=== PATIENT | female | born 1940 | race Caucasian/White ===

== ENCOUNTER 2017-12-19 17:33 | Inpatient (IN) | payer MEDICARE ==
[~2017-12-19] VITALS: Ht 157.5 cm; Wt 62.4 kg
[~2017-12-19 17:33] MED LIST: ASPI-1264 PO; ATOR20TA66 PO; CLOP75TA35 PO; HYDR25TA4 PO; LISI10TA4 PO; MULT-1074 PO
[2017-12-19 19:34] LABS: BASOPHILS % (AUTO) 0 % (0-1); EOSINOPHILS # (AUTO) 0.1 X10'3 (0-0.9); EOSINOPHILS % (AUTO) 3.2 % (0-6); LYMPHOCYTES % (AUTO) 28.5 % (21-51); MEAN CORPUSCULAR HEMOGLOBIN 22.6 PG (27.0-31.0); MEAN CORPUSCULAR HGB CONC 31.2 % (33.0-36.5); MEAN CORPUSCULAR VOLUME 72.3 FL (78-98); MEAN PLATELET VOLUME 6.5 FL (7.4-10.4); MONOCYTES # (AUTO) 0.4 X10'3 (0-0.9); NEUTROPHILS % (AUTO) 56.3 % (42-75); PLATELET COUNT 456 X10'3 (140-440); RED BLOOD COUNT 2.57 X10'6 (4.20-5.60); RED CELL DISTRIBUTION WIDTH 17.6 % (11.5-14.5); WHITE BLOOD COUNT 3.6 X10'3 (4.5-11.0)
[2017-12-19 19:46] LABS: HEMOGLOBIN 5.8 g/dl (12.0-16.0)
[2017-12-19 19:47] LABS: % IRON SATURATION 2 % (11-46); HEMATOCRIT 18.6 % (35.0-45.0); IRON 7 UG/DL (49-151); TOTAL IRON BINDING CAPACITY 444 UG/DL (259-388)
[2017-12-19 19:50] LABS: ALANINE AMINOTRANSFERASE 11 U/L (12-78); ALBUMIN 3.8 G/DL (3.4-5.0); ALBUMIN/GLOBULIN RATIO 1.1 (1.1-1.5); ALKALINE PHOSPHATASE 66 IU/L (46-116); ANION GAP 9 (8-16); ASPARTATE AMINO TRANSFERASE 8 U/L (10-37); BILIRUBIN,TOTAL 0.1 MG/DL (0.1-1.0); BLOOD UREA NITROGEN 20 MG/DL (7-18); BUN/CREATININE RATIO 17.9 (6.6-38.0); CHLORIDE 107 MMOL/L (99-107); CREATININE 1.12 MG/DL (0.40-0.90); GLUCOSE 101 MG/DL (70-104); POTASSIUM 4.4 MMOL/L (3.5-5.1); SODIUM 143 MMOL/L (135-145); TOTAL CARBON DIOXIDE 26.6 MMOL/L (24-32); TOTAL PROTEIN 7.3 G/DL (6.4-8.2); eGFR 47 ML/MIN
[2017-12-19 20:02] LABS: TOTAL CELLS COUNTED 100
[2017-12-19 20:04] LABS: ANISOCYTOSIS 2+; PLATELET ESTIMATE NORMAL; POLYCHROMASIA 1+
[2017-12-19 20:05] LABS: ELLIPTOCYTES 1+; HYPOCHROMASIA 2+; SCHISTOCYTES 1+; TARGET CELLS 1+
[2017-12-19] MEDS ORDERED: acetaminophen 325mg tablet PO PRN (20:35)
[2017-12-19] MEDS ORDERED: mag hydrox/Alum hydrox/simeth 30ml oral suspension PO PRN (20:35)
[2017-12-19] MEDS ORDERED: magnesium hydroxide 30ml (MOM) UD suspension PO PRN (20:35)
[2017-12-19] MEDS ORDERED: normal saline 1000ml 1,000 ML IV SCH (20:35)
[2017-12-19] MEDS ORDERED: ondansetron/PF 4mg/2ml inj IV PRN (20:35)
[2017-12-19 21:13] VITALS: BP 154/73
[2017-12-19 21:28] VITALS: BP 163/78
[2017-12-19 21:43] VITALS: BP 167/67
[2017-12-19 21:58] VITALS: BP 175/60
[2017-12-19 22:16] LABS: OCCULT BLOOD STOOL NEGATIVE (Neg)
[2017-12-19 22:30] VITALS: BP 173/52
[2017-12-19 23:58] VITALS: BP 168/73
[2017-12-20 00:18] VITALS: BP 143/47
[2017-12-20 00:41] VITALS: BP 150/55
[2017-12-20 01:45] VITALS: BP 138/47
[2017-12-20 02:45] VITALS: BP 148/53
[2017-12-20 06:08] LABS: BASOPHILS % (AUTO) 0.5 % (0-1); EOSINOPHILS # (AUTO) 0.2 X10'3 (0-0.9); EOSINOPHILS % (AUTO) 4.3 % (0-6); HEMATOCRIT 28.4 % (35.0-45.0); HEMOGLOBIN 9.3 g/dl (12.0-16.0); LYMPHOCYTES # (AUTO) 1.2 X10'3 (1.1-4.8); LYMPHOCYTES % (AUTO) 27.6 % (21-51); MEAN CORPUSCULAR HEMOGLOBIN 25.3 PG (27.0-31.0); MEAN CORPUSCULAR HGB CONC 32.7 % (33.0-36.5); MEAN CORPUSCULAR VOLUME 77.2 FL (78-98); MEAN PLATELET VOLUME 7.1 FL (7.4-10.4); MONOCYTES # (AUTO) 0.7 X10'3 (0-0.9); MONOCYTES % (AUTO) 15.3 % (2-12); NEUTROPHILS # (AUTO) 2.2 X10'3 (1.8-7.7); NEUTROPHILS % (AUTO) 52.3 % (42-75); PLATELET COUNT 347 X10'3 (140-440); RED BLOOD COUNT 3.68 X10'6 (4.20-5.60); RED CELL DISTRIBUTION WIDTH 18.4 % (11.5-14.5); WHITE BLOOD COUNT 4.3 X10'3 (4.5-11.0)
[2017-12-20 06:24] LABS: ALANINE AMINOTRANSFERASE 11 U/L (12-78); ALBUMIN 3.4 G/DL (3.4-5.0); ALKALINE PHOSPHATASE 61 IU/L (46-116); ANION GAP 11 (8-16); ASPARTATE AMINO TRANSFERASE 7 U/L (10-37); BILIRUBIN,TOTAL 0.7 MG/DL (0.1-1.0); BLOOD UREA NITROGEN 17 MG/DL (7-18); BUN/CREATININE RATIO 17.5 (6.6-38.0); CALCIUM 8.4 MG/DL (8.5-10.1); CHLORIDE 108 MMOL/L (99-107); CREATININE 0.97 MG/DL (0.40-0.90); GLUCOSE 90 MG/DL (70-104); POTASSIUM 4.6 MMOL/L (3.5-5.1); SODIUM 144 MMOL/L (135-145); TOTAL CARBON DIOXIDE 25.2 MMOL/L (24-32); TOTAL PROTEIN 6.7 G/DL (6.4-8.2); eGFR 56 ML/MIN
[2017-12-20 06:34] LABS: ANISOCYTOSIS 2+; HYPOCHROMASIA 1+; PLATELET ESTIMATE NORMAL
[2017-12-20 06:53] VITALS: BP 144/59
[2017-12-20] MEDS ORDERED: atorvastatin 20mg tablet PO SCH (08:00)
[2017-12-20] MEDS ORDERED: sodium ferric gluc complex inj 125 MG in normal saline 100ml IV soln 100 ML IV SCH (10:00)
[2017-12-20 12:02] LABS: BASOPHILS % (AUTO) 0.1 % (0-1); EOSINOPHILS # (AUTO) 0.1 X10'3 (0-0.9); EOSINOPHILS % (AUTO) 2.5 % (0-6); HEMOGLOBIN 9.1 g/dl (12.0-16.0); LYMPHOCYTES # (AUTO) 0.9 X10'3 (1.1-4.8); LYMPHOCYTES % (AUTO) 21.2 % (21-51); MEAN CORPUSCULAR HGB CONC 32.4 % (33.0-36.5); MEAN CORPUSCULAR VOLUME 77.2 FL (78-98); MEAN PLATELET VOLUME 7.1 FL (7.4-10.4); MONOCYTES # (AUTO) 0.5 X10'3 (0-0.9); MONOCYTES % (AUTO) 12.5 % (2-12); NEUTROPHILS # (AUTO) 2.7 X10'3 (1.8-7.7); NEUTROPHILS % (AUTO) 63.7 % (42-75); PLATELET COUNT 340 X10'3 (140-440); RED BLOOD COUNT 3.63 X10'6 (4.20-5.60); RED CELL DISTRIBUTION WIDTH 18.4 % (11.5-14.5); WHITE BLOOD COUNT 4.2 X10'3 (4.5-11.0)
[2017-12-20] MEDS ORDERED: FERR324T12 PO (12:16)
== END 2017-12-20 15:50 | disposition home or self-care (01) | DRG 812 ==
LOC: ER 17:34 → ED HOLD 20:35 → EDBEDREQ 21:18 → ORTHO 4S 22:15 → CMPBEDREQ 22:21
PROVIDERS: ADMIT Internal Medicine; ATTEND Internal Medicine
PROC: 30233N1 Transfusion of Nonautologous Red Blood Cells into Peripheral Vein, Percutaneous Approach (ICD-10-PCS; principal; 2017-12-19)
DX: D50.9 Iron deficiency anemia, unspecified (principal); I12.9 Hypertensive chronic kidney disease with stage 1 through stage 4 chronic kidney disease, or unspecified chronic kidney disease; N18.9 Chronic kidney disease, unspecified; Z82.49 Family history of ischemic heart disease and other diseases of the circulatory system; Z86.73 Personal history of transient ischemic attack (TIA), and cerebral infarction without residual deficits; Z88.2 Allergy status to sulfonamides
CPT/HCPCS: 36415; 80053; 82272; 83540; 83550; 85025; 86885; 86900; 86901; 86920; 87070; J2916; J7030; P9016

== ENCOUNTER → 2019-10-03 | Emergency (ER) | payer MEDICARE, OTHER ==
[~2019-10-03] VITALS: Ht 157.5 cm; Wt 63.7 kg
[~2019-10-03] MED LIST changes: +FERR324T12 PO
[2019-10-03 15:44] VITALS: BP 161/75
== END | disposition home or self-care (01) ==
LOC: ER 14:13
DX: S06.0X0A Concussion without loss of consciousness, initial encounter (principal); S40.011A Contusion of right shoulder, initial encounter; I10 Essential (primary) hypertension; Z86.2 Personal history of diseases of the blood and blood-forming organs and certain disorders involving the immune mechanism; Z86.73 Personal history of transient ischemic attack (TIA), and cerebral infarction without residual deficits; Z88.2 Allergy status to sulfonamides; Z79.82 Long term (current) use of aspirin; Z79.899 Other long term (current) drug therapy; V89.2XXA Person injured in unspecified motor-vehicle accident, traffic, initial encounter; Y93.89 Activity, other specified; Y92.488 Other paved roadways as the place of occurrence of the external cause; Y99.8 Other external cause status
CPT/HCPCS: 70450; 72125; 73030; 99285

== ENCOUNTER 2020-10-18 11:32 | Emergency (ER) | payer MEDICARE ==
[~2020-10-18] VITALS: Ht 157.5 cm; Wt 61.0 kg
[~2020-10-18 11:32] MED LIST changes: +CLOP75TA34 PO; -CLOP75TA35 PO; +LISI10TA27 PO; -LISI10TA4 PO
[2020-10-18] MEDS ORDERED: ibuprofen tablet 400 MG TABLET PO ONE (12:05)
[2020-10-18 12:26] LABS: HEMOGLOBIN 13.3 g/dl (12.0-16.0); MEAN CORPUSCULAR HEMOGLOBIN 29.5 PG (27.0-31.0); MEAN CORPUSCULAR HGB CONC 32.4 g/dL (33.0-36.5)
[2020-10-18 12:28] LABS: BASOPHILS % (AUTO) 0.6 % (0-1); EOSINOPHILS # (AUTO) 0.1 X10'3 (0-0.9); EOSINOPHILS % (AUTO) 3.2 % (0-6); HEMATOCRIT 40.9 % (35.0-45.0); LYMPHOCYTES # (AUTO) 0.8 X10'3 (1.1-4.8); LYMPHOCYTES % (AUTO) 17.6 % (21-51); MEAN CORPUSCULAR VOLUME 91.3 FL (78-98); MEAN PLATELET VOLUME 7.2 FL (7.4-10.4); MONOCYTES # (AUTO) 0.5 X10'3 (0-0.9); MONOCYTES % (AUTO) 11.4 % (2-12); NEUTROPHILS # (AUTO) 3.1 X10'3 (1.8-7.7); NEUTROPHILS % (AUTO) 67.2 % (42-75); PLATELET COUNT 282 X10'3 (140-440); RED BLOOD COUNT 4.49 X10'6 (4.20-5.60); RED CELL DISTRIBUTION WIDTH 15.4 % (11.5-14.5); WHITE BLOOD COUNT 4.7 X10'3 (4.5-11.0)
[2020-10-18 12:37] LABS: D-DIMER 1.26 MG/L FEU (0-0.50)
[2020-10-18 12:40] LABS: ALANINE AMINOTRANSFERASE 13 U/L (12-78); ALBUMIN 3.5 G/DL (3.4-5.0); ALBUMIN/GLOBULIN RATIO 0.9 (1.1-1.5); ALKALINE PHOSPHATASE 68 IU/L (46-116); ANION GAP 11 (8-16); ASPARTATE AMINO TRANSFERASE 11 U/L (10-37); BILIRUBIN,TOTAL 0.3 MG/DL (0.1-1.0); BLOOD UREA NITROGEN 16 MG/DL (7-18); BUN/CREATININE RATIO 17.6 (6.6-38.0); CALCIUM 9.3 MG/DL (8.5-10.1); CHLORIDE 108 MMOL/L (99-107); CREATININE 0.91 MG/DL (0.40-0.90); GLUCOSE 137 MG/DL (70-104); POTASSIUM 3.8 MMOL/L (3.5-5.1); SODIUM 145 MMOL/L (135-145); TOTAL CARBON DIOXIDE 26.5 MMOL/L (24-32); TOTAL PROTEIN 7.4 G/DL (6.4-8.2); eGFR 60 ML/MIN
[2020-10-18] MEDS ORDERED: iohexol 350MG/ML 100ml bottle IV ONE (13:12)
--- NOTE | 2020-10-18 13:25 | NUR ---
PT IN CT
--- NOTE | 2020-10-18 13:50 | NUR ---
PT RESTING ON ANDREW, AT BEDSIDE. AWAITING CT RESULTS
[2020-10-18] MEDS ORDERED: HYDR-3964 PO (14:20)
[2020-10-18] MEDS ORDERED: ONDA4TAB6 PO (14:20)
[2020-10-18 14:24] VITALS: BP 125/70
== END 2020-10-18 14:42 | disposition home or self-care (01) ==
LOC: ER 11:32
DX: S22.31XA Fracture of one rib, right side, initial encounter for closed fracture (principal); K44.9 Diaphragmatic hernia without obstruction or gangrene; I10 Essential (primary) hypertension; Z86.2 Personal history of diseases of the blood and blood-forming organs and certain disorders involving the immune mechanism; Z86.73 Personal history of transient ischemic attack (TIA), and cerebral infarction without residual deficits; Z88.2 Allergy status to sulfonamides; Z79.82 Long term (current) use of aspirin; Z79.899 Other long term (current) drug therapy; X58.XXXA Exposure to other specified factors, initial encounter; Y93.89 Activity, other specified; Y92.89 Other specified places as the place of occurrence of the external cause; Y99.8 Other external cause status
CPT/HCPCS: 36415; 71045; 71275; 80053; 83880; 84484; 85025; 85379; 93005; 99285; Q9967

== ENCOUNTER 2021-01-04 05:12 | Emergency (ER) | payer MEDICARE ==
[~2021-01-04] VITALS: Ht 157.5 cm; Wt 63.6 kg
[~2021-01-04 05:12] MED LIST changes: +ONDA4TAB6 PO
[2021-01-04] MEDS ORDERED: ondansetron/PF 4mg/2ml inj IV ONE (05:40)
[2021-01-04 05:53] LABS: BASOPHILS % (AUTO) 0.5 % (0-1); EOSINOPHILS % (AUTO) 0.1 % (0-6); HEMATOCRIT 43.9 % (35.0-45.0); HEMOGLOBIN 14.6 g/dl (12.0-16.0); LYMPHOCYTES % (AUTO) 11.7 % (21-51); MEAN CORPUSCULAR HEMOGLOBIN 30.7 PG (27.0-31.0); MEAN CORPUSCULAR HGB CONC 33.2 g/dL (33.0-36.5); MEAN CORPUSCULAR VOLUME 92.4 FL (78-98); MEAN PLATELET VOLUME 7.2 FL (7.4-10.4); MONOCYTES # (AUTO) 0.4 X10'3 (0-0.9); MONOCYTES % (AUTO) 4.5 % (2-12); NEUTROPHILS # (AUTO) 6.8 X10'3 (1.8-7.7); NEUTROPHILS % (AUTO) 83.2 % (42-75); PLATELET COUNT 280 X10'3 (140-440); RED BLOOD COUNT 4.75 X10'6 (4.20-5.60); RED CELL DISTRIBUTION WIDTH 14.1 % (11.5-14.5); WHITE BLOOD COUNT 8.2 X10'3 (4.5-11.0)
--- NOTE | 2021-01-04 06:00 | NUR ---
PT OUT TO CT
[2021-01-04 06:08] LABS: ALANINE AMINOTRANSFERASE 15 U/L (12-78); ALBUMIN 3.9 G/DL (3.4-5.0); ALKALINE PHOSPHATASE 72 IU/L (46-116); ANION GAP 15 (8-16); ASPARTATE AMINO TRANSFERASE 8 U/L (10-37); BILIRUBIN,TOTAL 0.4 MG/DL (0.1-1.0); BLOOD UREA NITROGEN 16 MG/DL (7-18); CALCIUM 8.9 MG/DL (8.5-10.1); CHLORIDE 104 MMOL/L (99-107); CREATININE 1.14 MG/DL (0.40-0.90); GLUCOSE 215 MG/DL (70-104); POTASSIUM 3.6 MMOL/L (3.5-5.1); SODIUM 141 MMOL/L (135-145); TOTAL CARBON DIOXIDE 21.9 MMOL/L (24-32); TOTAL PROTEIN 7.8 G/DL (6.4-8.2); eGFR 46 ML/MIN
[2021-01-04] MEDS ORDERED: normal saline 1000ml 1,000 ML IVB ONE (06:50)
--- NOTE | 2021-01-04 07:39 | NUR ---
Dr Collins in to assess patient at this time, states patient needs PO challenge and gait test prior to DC.
[2021-01-04] MEDS ORDERED: meclizine 12.5mg tablet PO ONE (08:25)
[2021-01-04] MEDS ORDERED: diazepam inj 5 MG/ML inj. IV ONE (08:25)
--- NOTE | 2021-01-04 08:30 | NUR ---
PATIENT GAIT TESTED, DR FREED AWARE PATIENT MILDLY DIZZY.
--- NOTE | 2021-01-04 08:40 | NUR ---
PATIENT TOLERATED WATER AND CRACKERS WELL, DR FREED AWARE.
--- NOTE | 2021-01-04 09:13 | NUR ---
PATIENT AROUSABLE VIA VERBAL STIMULI, SAT UP AT EDGE OF BED, DENIES DIZZINESS, STATES SHE FEELS READY TO GO HOME, DR FREED MADE AWARE.
[2021-01-04] MEDS ORDERED: MECL-159 PO (09:15)
[2021-01-04 09:28] VITALS: BP 152/69
== END 2021-01-04 09:29 | disposition home or self-care (01) ==
LOC: ER 05:13
DX: R42 Dizziness and giddiness (principal); R11.10 Vomiting, unspecified; R94.31 Abnormal electrocardiogram [ECG] [EKG]; I11.9 Hypertensive heart disease without heart failure; D64.9 Anemia, unspecified; Z88.2 Allergy status to sulfonamides; Z88.8 Allergy status to other drugs, medicaments and biological substances; Z79.899 Other long term (current) drug therapy
CPT/HCPCS: 36415; 70450; 71045; 80053; 83880; 84484; 85025; 93005; 96361; 96374; 96375; 99285; J2405; J3360; J7030; J8597

== ENCOUNTER 2021-03-08 14:40 | Inpatient (IN) | payer MEDICARE ==
[~2021-03-08] VITALS: Ht 157.5 cm; Wt 63.9 kg
[~2021-03-08 14:40] MED LIST changes: +MECL-159 PO
[2021-03-08 15:08] LABS: BASOPHILS % (AUTO) 0.7 % (0-1); EOSINOPHILS # (AUTO) 0.1 X10'3 (0-0.9); EOSINOPHILS % (AUTO) 1.7 % (0-6); HEMOGLOBIN 13.9 g/dl (12.0-16.0); LYMPHOCYTES # (AUTO) 1.3 X10'3 (1.1-4.8); LYMPHOCYTES % (AUTO) 28.8 % (21-51); MEAN CORPUSCULAR HEMOGLOBIN 30.6 PG (27.0-31.0); MEAN CORPUSCULAR HGB CONC 33.2 g/dL (33.0-36.5); MEAN CORPUSCULAR VOLUME 92.1 FL (78-98); MONOCYTES # (AUTO) 0.5 X10'3 (0-0.9); MONOCYTES % (AUTO) 11.1 % (2-12); NEUTROPHILS # (AUTO) 2.5 X10'3 (1.8-7.7); NEUTROPHILS % (AUTO) 57.7 % (42-75); PLATELET COUNT 302 X10'3 (140-440); RED BLOOD COUNT 4.56 X10'6 (4.20-5.60); RED CELL DISTRIBUTION WIDTH 14.2 % (11.5-14.5); WHITE BLOOD COUNT 4.4 X10'3 (4.5-11.0)
[2021-03-08 15:25] LABS: ALANINE AMINOTRANSFERASE 18 U/L (12-78); ALBUMIN 3.9 G/DL (3.4-5.0); ALKALINE PHOSPHATASE 67 IU/L (46-116); ANION GAP 13 (8-16); ASPARTATE AMINO TRANSFERASE 12 U/L (10-37); BILIRUBIN,TOTAL 0.3 MG/DL (0.1-1.0); BLOOD UREA NITROGEN 18 MG/DL (7-18); BUN/CREATININE RATIO 14.9 (6.6-38.0); CALCIUM 9.2 MG/DL (8.5-10.1); CHLORIDE 107 MMOL/L (99-107); CREATININE 1.21 MG/DL (0.40-0.90); GLUCOSE 131 MG/DL (70-104); POTASSIUM 3.9 MMOL/L (3.5-5.1); SODIUM 145 MMOL/L (135-145); TOTAL CARBON DIOXIDE 24.8 MMOL/L (24-32); TOTAL PROTEIN 7.9 G/DL (6.4-8.2); eGFR 43 ML/MIN
[2021-03-08 15:28] LABS: TROPONIN I < 0.04 NG/ML (0.0-0.05)
[2021-03-08 15:51] LABS: PARTIAL THROMBOPLASTIN TIME 25 SECONDS (22-32)
[2021-03-08] MEDS ORDERED: labetalol 20mg/4ml (5mg/ml) syringe IV ONE (20:20)
[2021-03-08] MEDS ORDERED: temazepam 15mg capsule PO PRN (21:00)
--- NOTE | 2021-03-08 21:10 | NUR ---
Tele neuro completed
[2021-03-08] MEDS ORDERED: acetaminophen 325mg tablet PO PRN ×2 (22:50)
[2021-03-08] MEDS ORDERED: magnesium 4gm in 100ml NS 100 ML IV PRN (22:50)
[2021-03-08] MEDS ORDERED: magnesium 2GM in 50ml NS 50 ML IV PRN (22:50)
[2021-03-08] MEDS ORDERED: mag hydrox/Alum hydrox/simeth 30ml oral suspension PO PRN (22:50)
[2021-03-08] MEDS ORDERED: ondansetron/PF 4mg/2ml inj IV PRN (22:50)
[2021-03-08] MEDS ORDERED: potassium Cl 20 mEq SR tablet PO PRN ×2 (22:50)
[2021-03-08] MEDS ORDERED: potassium Cl 40MEQ/1/2NS 520ml 520 ML IV PRN ×2 (22:50)
[2021-03-08] MEDS ORDERED: magnesium hydroxide 30ml (MOM) UD suspension PO PRN (22:50)
[2021-03-08] MEDS ORDERED: magnesium Cl slow-release 64mg tablet PO PRN (22:50)
[2021-03-08] MEDS: normal saline 1000ml 1,000 ML IV SCH (23:41)
[2021-03-09 01:20] VITALS: BP 189/87
[2021-03-09 05:20] VITALS: BP 151/68
[2021-03-09 05:58] LABS: BASOPHILS % (AUTO) 0.7 % (0-1); EOSINOPHILS # (AUTO) 0.1 X10'3 (0-0.9); EOSINOPHILS % (AUTO) 2.7 % (0-6); HEMATOCRIT 38.8 % (35.0-45.0); LYMPHOCYTES # (AUTO) 1.1 X10'3 (1.1-4.8); LYMPHOCYTES % (AUTO) 27.3 % (21-51); MEAN CORPUSCULAR HEMOGLOBIN 30.5 PG (27.0-31.0); MEAN CORPUSCULAR HGB CONC 33.5 g/dL (33.0-36.5); MEAN PLATELET VOLUME 7.3 FL (7.4-10.4); MONOCYTES # (AUTO) 0.6 X10'3 (0-0.9); MONOCYTES % (AUTO) 14.1 % (2-12); NEUTROPHILS # (AUTO) 2.2 X10'3 (1.8-7.7); NEUTROPHILS % (AUTO) 55.2 % (42-75); PLATELET COUNT 266 X10'3 (140-440); RED BLOOD COUNT 4.26 X10'6 (4.20-5.60); RED CELL DISTRIBUTION WIDTH 14.2 % (11.5-14.5); WHITE BLOOD COUNT 4.1 X10'3 (4.5-11.0)
[2021-03-09 06:04] LABS: ALANINE AMINOTRANSFERASE 14 U/L (12-78); ALBUMIN 3.6 G/DL (3.4-5.0); ALBUMIN/GLOBULIN RATIO 1.1 (1.1-1.5); ALKALINE PHOSPHATASE 62 IU/L (46-116); ANION GAP 8 (8-16); ASPARTATE AMINO TRANSFERASE 8 U/L (10-37); BILIRUBIN,TOTAL 0.4 MG/DL (0.1-1.0); BLOOD UREA NITROGEN 17 MG/DL (7-18); CALCIUM 8.9 MG/DL (8.5-10.1); CHLORIDE 110 MMOL/L (99-107); CHOL/HDL RATIO 4.4 (0.00-4.99); CHOLESTEROL 180 MG/DL (0-200); CREATININE 1.06 MG/DL (0.40-0.90); GLUCOSE 100 MG/DL (70-104); HDL CHOLESTEROL 41 MG/DL (35-60); LDL CHOLESTEROL 111 MG/DL (50-100); MAGNESIUM 1.9 MG/DL (1.5-2.4); POTASSIUM 3.9 MMOL/L (3.5-5.1); SODIUM 146 MMOL/L (135-145); TOTAL CARBON DIOXIDE 28.2 MMOL/L (24-32); TOTAL PROTEIN 6.9 G/DL (6.4-8.2); TRIGLYCERIDES 119 MG/DL (20-135); eGFR 50 ML/MIN
--- NOTE | 2021-03-09 06:56 | NUR ---
Patient in room ORTHO 4024B. I have received report from ROXANNA LEAL and had the opportunity to ask questions and assume patient care.
[2021-03-09] MEDS: clopidogrel 75mg tablet PO SCH (07:37)
[2021-03-09] MEDS: aspirin 81mg, enteric-coated 1 TAB TABLET.DR PO SCH (07:39)
[2021-03-09] MEDS: heparin, porcine 5000 units/ml vial SQ SCH ×2 (07:40→20:06)
[2021-03-09] MEDS ORDERED: atorvastatin 20mg tablet PO SCH (08:00)
[2021-03-09] MEDS: K and/or MAG REPLACEMENT MC SCH ×2 (08:00→20:00)
[2021-03-09 10:00] VITALS: BP 146/84
[2021-03-09] MEDS ORDERED: FLUO-86 PO (11:57)
[2021-03-09] MEDS: normal saline 1000ml 1,000 ML IV SCH (13:08)
[2021-03-09 14:00] VITALS: BP 134/60
[2021-03-09] MEDS ORDERED: atorvastatin 20mg tablet PO ONE (16:20)
[2021-03-09 18:00] VITALS: BP 158/74
--- NOTE | 2021-03-09 18:30 | NUR ---
Problems reprioritized. Patient report given, questions answered & plan of care reviewed with ROXANNA BARBER.
[2021-03-09 22:00] VITALS: BP 147/73
[2021-03-10 02:25] VITALS: BP 175/80
[2021-03-10] MEDS: normal saline 1000ml 1,000 ML IV SCH ×2 (03:26→17:44)
[2021-03-10 06:00] VITALS: BP 149/78
[2021-03-10 06:11] LABS: BASOPHILS % (AUTO) 1.3 % (0-1); EOSINOPHILS # (AUTO) 0.1 X10'3 (0-0.9); EOSINOPHILS % (AUTO) 3.5 % (0-6); HEMATOCRIT 42.6 % (35.0-45.0); HEMOGLOBIN 14.2 g/dl (12.0-16.0); LYMPHOCYTES # (AUTO) 1.1 X10'3 (1.1-4.8); LYMPHOCYTES % (AUTO) 31.7 % (21-51); MEAN CORPUSCULAR HEMOGLOBIN 30.8 PG (27.0-31.0); MEAN CORPUSCULAR HGB CONC 33.3 g/dL (33.0-36.5); MEAN CORPUSCULAR VOLUME 92.5 FL (78-98); MEAN PLATELET VOLUME 7.4 FL (7.4-10.4); MONOCYTES # (AUTO) 0.6 X10'3 (0-0.9); MONOCYTES % (AUTO) 16.4 % (2-12); NEUTROPHILS # (AUTO) 1.6 X10'3 (1.8-7.7); NEUTROPHILS % (AUTO) 47.1 % (42-75); PLATELET COUNT 289 X10'3 (140-440); RED BLOOD COUNT 4.61 X10'6 (4.20-5.60); RED CELL DISTRIBUTION WIDTH 14.2 % (11.5-14.5); WHITE BLOOD COUNT 3.4 X10'3 (4.5-11.0)
[2021-03-10 06:18] LABS: ALANINE AMINOTRANSFERASE 17 U/L (12-78); ALBUMIN 3.9 G/DL (3.4-5.0); ALBUMIN/GLOBULIN RATIO 1.1 (1.1-1.5); ALKALINE PHOSPHATASE 70 IU/L (46-116); ANION GAP 11 (8-16); ASPARTATE AMINO TRANSFERASE 9 U/L (10-37); BILIRUBIN,TOTAL 0.4 MG/DL (0.1-1.0); BLOOD UREA NITROGEN 16 MG/DL (7-18); BUN/CREATININE RATIO 15.2 (6.6-38.0); CALCIUM 9.3 MG/DL (8.5-10.1); CHLORIDE 106 MMOL/L (99-107); CREATININE 1.05 MG/DL (0.40-0.90); GLUCOSE 95 MG/DL (70-104); MAGNESIUM 1.9 MG/DL (1.5-2.4); SODIUM 147 MMOL/L (135-145); TOTAL PROTEIN 7.6 G/DL (6.4-8.2); eGFR 51 ML/MIN
--- NOTE | 2021-03-10 06:47 | NUR ---
Patient in room ORTHO 4024. I have received report from rashard boyd and had the opportunity to ask questions and assume patient care.
[2021-03-10] MEDS: K and/or MAG REPLACEMENT MC SCH ×2 (07:58→20:00)
[2021-03-10] MEDS: aspirin 81mg, enteric-coated 1 TAB TABLET.DR PO SCH (08:02)
[2021-03-10] MEDS: clopidogrel 75mg tablet PO SCH (08:02)
[2021-03-10] MEDS: lisinopril 20mg tablet PO SCH (08:02)
[2021-03-10] MEDS: atorvastatin 20mg tablet PO SCH (08:03)
[2021-03-10] MEDS: heparin, porcine 5000 units/ml vial SQ SCH ×2 (08:03→19:19)
[2021-03-10 08:06] LABS: PLATELET ESTIMATE NORMAL; TOTAL CELLS COUNTED 100
[2021-03-10 10:00] VITALS: BP 146/84
[2021-03-10] MEDS ORDERED: iohexol 350MG/ML 100ml bottle IV ONE (12:50)
--- NOTE | 2021-03-10 13:57 | NUR ---
PAGED DR READ RE: PAGER ID: [phone] MESSAGE: IGNACIA VELARDE. [facility] RESULTED. O/N JORDEN [id number]
[2021-03-10 14:00] VITALS: BP 143/68
[2021-03-10 18:00] VITALS: BP 190/87
--- NOTE | 2021-03-10 18:32 | NUR ---
Problems reprioritized. Patient report given, questions answered & plan of care reviewed with LUIS ENRIQUE MCKNIGHT.
[2021-03-10] MEDS: amLODIPine 5mg tablet PO SCH (19:20)
[2021-03-10 22:00] VITALS: BP 142/89
[2021-03-11 02:00] VITALS: BP 154/72
[2021-03-11 05:56] LABS: EOSINOPHILS # (AUTO) 0.1 X10'3 (0-0.9); EOSINOPHILS % (AUTO) 2.7 % (0-6); HEMATOCRIT 41.4 % (35.0-45.0); HEMOGLOBIN 13.9 g/dl (12.0-16.0); LYMPHOCYTES # (AUTO) 1.1 X10'3 (1.1-4.8); LYMPHOCYTES % (AUTO) 32.3 % (21-51); MEAN CORPUSCULAR HEMOGLOBIN 30.8 PG (27.0-31.0); MEAN CORPUSCULAR HGB CONC 33.7 g/dL (33.0-36.5); MEAN CORPUSCULAR VOLUME 91.4 FL (78-98); MONOCYTES # (AUTO) 0.4 X10'3 (0-0.9); MONOCYTES % (AUTO) 12.5 % (2-12); NEUTROPHILS # (AUTO) 1.8 X10'3 (1.8-7.7); NEUTROPHILS % (AUTO) 51.5 % (42-75); PLATELET COUNT 274 X10'3 (140-440); RED BLOOD COUNT 4.53 X10'6 (4.20-5.60); RED CELL DISTRIBUTION WIDTH 14.1 % (11.5-14.5); WHITE BLOOD COUNT 3.5 X10'3 (4.5-11.0)
[2021-03-11 06:12] LABS: ALANINE AMINOTRANSFERASE 13 U/L (12-78); ALBUMIN 3.7 G/DL (3.4-5.0); ALBUMIN/GLOBULIN RATIO 1.1 (1.1-1.5); ALKALINE PHOSPHATASE 68 IU/L (46-116); ANION GAP 10 (8-16); ASPARTATE AMINO TRANSFERASE 8 U/L (10-37); BILIRUBIN,TOTAL 0.3 MG/DL (0.1-1.0); BLOOD UREA NITROGEN 13 MG/DL (7-18); BUN/CREATININE RATIO 13.8 (6.6-38.0); CALCIUM 8.8 MG/DL (8.5-10.1); CHLORIDE 109 MMOL/L (99-107); CREATININE 0.94 MG/DL (0.40-0.90); GLUCOSE 93 MG/DL (70-104); SODIUM 145 MMOL/L (135-145); TOTAL CARBON DIOXIDE 26.4 MMOL/L (24-32); TOTAL PROTEIN 7.2 G/DL (6.4-8.2); eGFR 57 ML/MIN
[2021-03-11 06:43] VITALS: BP 149/60
[2021-03-11] MEDS: K and/or MAG REPLACEMENT MC SCH (08:00)
[2021-03-11] MEDS: normal saline 1000ml 1,000 ML IV SCH (08:02)
[2021-03-11] MEDS: aspirin 81mg, enteric-coated 1 TAB TABLET.DR PO SCH (08:06)
[2021-03-11] MEDS: clopidogrel 75mg tablet PO SCH (08:06)
[2021-03-11] MEDS: heparin, porcine 5000 units/ml vial SQ SCH (08:07)
[2021-03-11] MEDS: lisinopril 20mg tablet PO SCH (08:07)
[2021-03-11] MEDS: atorvastatin 20mg tablet PO SCH (08:07)
[2021-03-11] MEDS: amLODIPine 5mg tablet PO SCH (08:07)
[2021-03-11] MEDS ORDERED: ASPI-1071 PO ×2 (09:16)
[2021-03-11] MEDS ORDERED: CLOP75TA34 PO ×2 (09:16)
[2021-03-11] MEDS ORDERED: ATOR20TA66 PO ×2 (09:16)
[2021-03-11] MEDS ORDERED: NOR5T PO ×2 (09:16)
--- NOTE | 2021-03-11 10:45 | NUR ---
CALLED DR PHOENIX RE: DOES HE WANT PT TO DC HOME NOW AND F/U OUTPT FOR [facility] OR STAY HERE ON THE FLOOR UNTIL [facility] IS COMPLETE. NO ANSWER AT THIS TIME, LEFT MSG AND CALLBACK #.
[2021-03-11 11:27] VITALS: BP 135/67
--- NOTE | 2021-03-11 11:59 | NUR ---
PAGED DR READ RE: PAGER ID: [phone] MESSAGE: IGNACIA VELARDE. CALLED [facility] AROUND 1045, NO ANSWER, LEFT MSG, NO CALL BACK YET. O/N JORDEN [id number]
--- NOTE | 2021-03-11 17:26 | NUR ---
PT DISCHARGED IN STABLE CONDITION. LEFT FACILITY IN PRIVATE VEHICLE WITH . IV DC CANULA INTACT. FOLLOW UP INSTRUCTIONS GIVEN, PT MADE APPT WITH DR PHOENIX FOR NEXT MONDAY RE [facility]. ALL QUESTIONS ANSWERED. ALL BELONGINGS IN HAND. Addendum: 03/11/21 at 1730 by Adela Galdamez RN Amended: Links added.
[2021-03-15] MEDS ORDERED: AMLO2.5T2 PO (12:11)
[2021-03-15] MEDS ORDERED: ATOR40TA71 PO (12:11)
[2021-03-15] MEDS ORDERED: ASPI81TA52 PO (12:11)
[2021-03-15] MEDS ORDERED: CLOP75TA15 PO (12:11)
== END 2021-03-11 17:15 | disposition home or self-care (01) | DRG 64 ==
LOC: ER 14:41 → UNDOADMIN 22:49 → ED HOLD 22:49 → ORTHO 4S 03-09 01:05 → ED HOLD 03-09 01:05
PROVIDERS: ADMIT Internal Medicine; ATTEND Family Medicine
PROC: B3251ZZ Computerized Tomography (CT Scan) of Bilateral Common Carotid Arteries using Low Osmolar Contrast (ICD-10-PCS; principal; 2021-03-10)
PROC: B32G1ZZ Computerized Tomography (CT Scan) of Bilateral Vertebral Arteries using Low Osmolar Contrast (ICD-10-PCS; 2021-03-10)
PROC: B3281ZZ Computerized Tomography (CT Scan) of Bilateral Internal Carotid Arteries using Low Osmolar Contrast (ICD-10-PCS; 2021-03-10)
DX: I63.9 Cerebral infarction, unspecified (principal); J18.9 Pneumonia, unspecified organism; N18.30 Chronic kidney disease, stage 3 unspecified; D64.9 Anemia, unspecified; E78.5 Hyperlipidemia, unspecified; F32.9 Major depressive disorder, single episode, unspecified; R29.701 NIHSS score 1; I12.9 Hypertensive chronic kidney disease with stage 1 through stage 4 chronic kidney disease, or unspecified chronic kidney disease; G83.24 Monoplegia of upper limb affecting left nondominant side; I65.23 Occlusion and stenosis of bilateral carotid arteries; K44.9 Diaphragmatic hernia without obstruction or gangrene; Z82.3 Family history of stroke; Z82.49 Family history of ischemic heart disease and other diseases of the circulatory system; Z88.2 Allergy status to sulfonamides; Z86.73 Personal history of transient ischemic attack (TIA), and cerebral infarction without residual deficits; Z79.899 Other long term (current) drug therapy
CPT/HCPCS: 36415; 70450; 70498; 70544; 70551; 71045; 80053; 80061; 83735; 84484; 85007; 85025; 85610; 85730; 87081; 92508; 92616; 93005; 93306; 93880; 96374; 97116; 97161; 97530; 99285; G0378; J1644; J3490; J7030; Q9967

== ENCOUNTER 2021-03-18 11:15 | Inpatient (IN) | payer MEDICARE ==
[2021-03-15 13:19] LABS: BASOPHILS % (AUTO) 0.5 % (0-1); EOSINOPHILS # (AUTO) 0.1 X10'3 (0-0.9); EOSINOPHILS % (AUTO) 1.5 % (0-6); LYMPHOCYTES # (AUTO) 1.2 X10'3 (1.1-4.8); LYMPHOCYTES % (AUTO) 28.3 % (21-51); MEAN CORPUSCULAR HGB CONC 32.2 g/dL (33.0-36.5); MEAN CORPUSCULAR VOLUME 93.1 FL (78-98); MEAN PLATELET VOLUME 7.5 FL (7.4-10.4); MONOCYTES # (AUTO) 0.5 X10'3 (0-0.9); MONOCYTES % (AUTO) 12.5 % (2-12); NEUTROPHILS # (AUTO) 2.5 X10'3 (1.8-7.7); NEUTROPHILS % (AUTO) 57.2 % (42-75); PRE OP HEMATOCRIT 42.4 % (35.0-45.0); PRE OP HEMOGLOBIN 13.7 g/dL (12.0-16.0); PRE OP PLATELET COUNT 311 X10'3 (140-440); RED BLOOD COUNT 4.55 X10'6 (4.20-5.60); RED CELL DISTRIBUTION WIDTH 13.9 % (11.5-14.5)
[2021-03-15 13:27] LABS: PRE OP PROTIME 10.8 SECONDS (9.0-12.0)
[2021-03-15 13:33] LABS: ALBUMIN 3.9 G/DL (3.4-5.0); ALKALINE PHOSPHATASE 71 IU/L (46-116); BLOOD UREA NITROGEN 16 MG/DL (7-18); BUN/CREATININE RATIO 16.8 (6.6-38.0); CALCIUM 8.8 MG/DL (8.5-10.1); CHLORIDE 108 MMOL/L (99-107); CREATININE 0.95 MG/DL (0.40-0.90); PRE OP ALT 18 U/L (30-65); PRE OP ANION GAP 8 (8-16); PRE OP AST 9 U/L (10-37); PRE OP BILIRUB, TOTAL 0.3 MG/DL (0.0-1.0); PRE OP GLUCOSE 74 MG/DL (70-104); PRE OP POTASSIUM 4.3 MMOL/L (3.4-5.1); PRE OP SODIUM 143 MMOL/L (135-145); TOTAL PROTEIN 7.7 G/DL (6.4-8.2); eGFR 57 ML/MIN
[~2021-03-18] VITALS: Ht 157.5 cm; Wt 64.0 kg
[~2021-03-18 11:15] MED LIST changes: +AMLO2.5T2 PO; -ASPI-1264 PO; +ASPI81TA52 PO; -ATOR20TA66 PO; +ATOR40TA71 PO; +CLOP75TA15 PO; -CLOP75TA34 PO; -FERR324T12 PO; +FLUO-86 PO; -HYDR25TA4 PO; -MECL-159 PO; -ONDA4TAB6 PO; +PHENYLephrine 50 MG in NS 250ml IV soln IV SCH; +famotidine 20mg tablet PO ONE; +nitroPRUSSIDE 20mg in NS 100 ML IV SCH; +ringers solution, lacted 1,000 ML IV SCH
[2021-04-02] VITALS (30 sets, daily range): BP systolic 80–156; BP diastolic 53–81
[2021-04-02] MEDS ORDERED: ringers solution, lacted 1,000 ML IV SCH ×2 (05:00→07:55)
[2021-04-02] MEDS ORDERED: cefazolin/dext.iso 2gm/100ml IV ONE (05:30)
[2021-04-02] MEDS: phenylephrine inj 50 MG in normal saline 250ml IV soln 245 ML IV SCH (05:30)
[2021-04-02] MEDS ORDERED: famotidine 20mg tablet PO ONE (05:30)
[2021-04-02] MEDS: nitroPRUSSIDE (NIPRIDE) (200MCG/ML) 100ML Drip IV SCH (05:30)
[2021-04-02] MEDS ORDERED: LIDOcaine 1% (10mg/ml) 2ml vial ONE (07:01)
[2021-04-02] MEDS ORDERED: heparin 10,000 units/1 ML INJ ONE (07:01)
[2021-04-02 07:19] LABS: BASOPHILS % (AUTO) 0.8 % (0-1); EOSINOPHILS # (AUTO) 0.1 X10'3 (0-0.9); EOSINOPHILS % (AUTO) 2.4 % (0-6); LYMPHOCYTES # (AUTO) 0.9 X10'3 (1.1-4.8); LYMPHOCYTES % (AUTO) 21.4 % (21-51); MEAN CORPUSCULAR HEMOGLOBIN 30.5 PG (27.0-31.0); MEAN CORPUSCULAR HGB CONC 33.1 g/dL (33.0-36.5); MEAN CORPUSCULAR VOLUME 92.2 FL (78-98); MEAN PLATELET VOLUME 7.1 FL (7.4-10.4); MONOCYTES # (AUTO) 0.5 X10'3 (0-0.9); MONOCYTES % (AUTO) 11.8 % (2-12); NEUTROPHILS # (AUTO) 2.7 X10'3 (1.8-7.7); NEUTROPHILS % (AUTO) 63.6 % (42-75); PRE OP HEMATOCRIT 39.8 % (35.0-45.0); PRE OP HEMOGLOBIN 13.1 g/dL (12.0-16.0); PRE OP PLATELET COUNT 275 X10'3 (140-440); RED BLOOD COUNT 4.31 X10'6 (4.20-5.60); RED CELL DISTRIBUTION WIDTH 13.8 % (11.5-14.5)
[2021-04-02 07:34] LABS: PRE OP PROTIME 10.8 SECONDS (9.0-12.0)
[2021-04-02 07:41] LABS: ALBUMIN 3.7 G/DL (3.4-5.0); ALBUMIN/GLOBULIN RATIO 1.1 (1.1-1.5); ALKALINE PHOSPHATASE 67 IU/L (46-116); BLOOD UREA NITROGEN 19 MG/DL (7-18); CALCIUM 8.7 MG/DL (8.5-10.1); CHLORIDE 106 MMOL/L (99-107); PRE OP ALT 16 U/L (30-65); PRE OP ANION GAP 7 (8-16); PRE OP AST 6 U/L (10-37); PRE OP BILIRUB, TOTAL 0.5 MG/DL (0.0-1.0); PRE OP GLUCOSE 89 MG/DL (70-104); PRE OP POTASSIUM 3.8 MMOL/L (3.4-5.1); PRE OP SODIUM 138 MMOL/L (135-145); TOTAL CARBON DIOXIDE 25.2 MMOL/L (24-32); TOTAL PROTEIN 7.2 G/DL (6.4-8.2); eGFR 53 ML/MIN
[2021-04-02] MEDS ORDERED: fentaNYL/PF 50MCG/1 ML 2ML syringe IV PRN ×2 (07:55)
[2021-04-02] MEDS ORDERED: nitroPRUSSIDE sod inj. 50 MG in dextrose 5%-water 248 ML IV SCH (07:55)
[2021-04-02] MEDS ORDERED: morphine 2 MG/ML inj. syringe IV PRN (07:55)
[2021-04-02] MEDS ORDERED: phenylephrine inj 50 MG in normal saline 250ml IV soln 250 ML IV SCH (07:55)
[2021-04-02] MEDS ORDERED: hydrALAZINE 20mg/ml inj. IV PRN (07:55)
[2021-04-02] MEDS ORDERED: morphine 4 MG/ML inj SYRINge IV PRN (07:55)
[2021-04-02] MEDS ORDERED: labetalol 20mg/4ml (5mg/ml) syringe IV PRN (07:55)
[2021-04-02] MEDS ORDERED: ondansetron/PF 4mg/2ml inj IV PRN ×2 (07:55→10:40)
[2021-04-02] MEDS ORDERED: fentaNYL/PF 50MCG/1 ML 2ML syringe ONE (08:00)
[2021-04-02] MEDS ORDERED: midazolam 1 mg/ML 2ml injection ONE (08:00)
[2021-04-02] MEDS ORDERED: propofol inj 20 ML IV ONE (08:01)
[2021-04-02] MEDS ORDERED: LIDOcaine 2% (20mg/ml) 5ml vial ONE (08:01)
[2021-04-02] MEDS ORDERED: dexamethasone sod phosphate 4mg/ml inj. ONE (08:01)
[2021-04-02] MEDS ORDERED: glycopyrrolate 0.2mg/ml inj ONE (08:02)
[2021-04-02] MEDS ORDERED: ondansetron/PF 4mg/2ml inj ONE (08:02)
[2021-04-02] MEDS ORDERED: rocuronium 10mg/ml inj IV ONE (08:02)
[2021-04-02] MEDS ORDERED: neostigmine methylsulfate 1 MG/ML 10ml vial ONE (08:02)
[2021-04-02] MEDS ORDERED: desflurane 240ml liquid inh. IH ONE (08:25)
[2021-04-02] MEDS ORDERED: heparin 1,000unit/ml 10ml vial 10 ML ONE (08:53)
[2021-04-02] MEDS ORDERED: hydrALAZINE 20mg/ml inj. IV ONE (09:09)
[2021-04-02] MEDS ORDERED: labetalol 20mg/4ml (5mg/ml) syringe IV ONE (09:14)
--- NOTE | 2021-04-02 10:34 | NUR ---
Received from OR via ICU BED , accompanied by Anesthesiologist SHANNAN and report given by Anesthesiolgist. PATIENT WITH 20G PIV IN LEFT UE RUNNIGN LR AT 50 WELL NIPRIDE. ART LINE IN RIGHT UE. CALLED CRITICAL PTT GREATER THAN 139 FROM LAB TO MD PHOENIX. NO S/S OF BLEED AT SITE. PERI WITH APPROX 50CC. WILL CONTINUE TO ASSESS FOR BLEED. RIGHT NECK DRESSING IS CDI WELL AT THIS TIME WITH OUT S/S SWELLING/ BLEEDING. WILL CONTINUE TO ASSESS. Addendum: 04/02/21 at 1055 by Travon Cortés RN, RN Amended: Links added.
[2021-04-02] MEDS ORDERED: HYDROmorphone inj. 0.5 MG/0.5 ML DISP.SYRIN IV PRN (10:40)
[2021-04-02 10:50] LABS: PARTIAL THROMBOPLASTIN TIME > 139 SECONDS (22-32)
--- NOTE | 2021-04-02 10:55 | NUR ---
PUSH PULLS, TECHNICAL INFORMATION SPECIALIST ALL SYMMETRICAL. TONGUE MIDLINE, SMILE SYMMETRICAL. NEUROLOGICALLY INTACT AT THIS TIME. Addendum: 04/02/21 at 1059 by Travon Cortés RN, RN Amended: Links added.
--- NOTE | 2021-04-02 11:24 | NUR ---
RIGHT NECK SITE STILL CDI. EMPTIED PERI FOR 40CC STILL NEUROLOGICALLY INTACT. Addendum: 04/02/21 at 1126 by Travon Cortés RN, RN Amended: Links added.
--- NOTE | 2021-04-02 13:34 | NUR ---
Report called to receiving nurse. Transferred via ICU BED WITH MONITOR. ONE BAG OF Belongings SENT WITH PATIENT TO 2045.. Special Issues communicated to receiving nurse YOLY Baird RN.VSS. DRESSING SLIGHTLY MORE EXTENDED TO DRESSING BUT STILL CONTAINED WITHIN. DRAINAGE IN PERI PRESENT. STILL SOFT TO RIGHT SIDE OF NECK. VSS. Addendum: 04/02/21 at 1347 by Travon Cortés RN, RN Amended: Links added.
--- NOTE | 2021-04-02 14:15 | NUR ---
Patient in room ICU 2045. I have received report from Travon MCKNIGHT and had the opportunity to ask questions and assume patient care from PACU. Dressing at neck with oozing. Slightly larger as noted by black markings. PERI Drain in place with sm amt of sanguineous drainage.
[2021-04-02] MEDS: ceFAZolin inj. 1,000 MG in dextrose 5%-water 50ml 50 ML IV SCH (16:20)
[2021-04-02] MEDS: potassium CL 20mEq in D5-1/2NS 1,000 ML IV SCH ×2 (18:40→21:58)
--- NOTE | 2021-04-02 18:53 | NUR ---
Problems reprioritized. Patient report given, questions answered & plan of care reviewed with Viky MCKNIGHT.
--- NOTE | 2021-04-02 18:57 | NUR ---
Patient in room ICU 2045. I have received report from Remi MCKNIGHT and had the opportunity to ask questions and assume patient care.
[2021-04-02] MEDS: HYDROcodone/acetaminophen 5mg/325mg tablet PO PRN (19:30)
[2021-04-02] MEDS ORDERED: aspirin 300mg supp.rect RC ONE (21:50)
[2021-04-03] VITALS (14 sets, daily range): BP systolic 154–173; BP diastolic 61–75
[2021-04-03] MEDS: HYDROcodone/acetaminophen 5mg/325mg tablet PO PRN (00:57)
[2021-04-03] MEDS: ceFAZolin inj. 1,000 MG in dextrose 5%-water 50ml 50 ML IV SCH ×2 (00:57→07:56)
[2021-04-03] MEDS: nitroPRUSSIDE (NIPRIDE) (200MCG/ML) 100ML Drip IV SCH (02:04)
[2021-04-03] MEDS: potassium CL 20mEq in D5-1/2NS 1,000 ML IV SCH ×2 (02:40→06:36)
[2021-04-03 03:30] LABS: BASOPHILS % (AUTO) 0.1 % (0-1); EOSINOPHILS % (AUTO) 0 % (0-6); HEMATOCRIT 35.3 % (35.0-45.0); HEMOGLOBIN 11.6 g/dl (12.0-16.0); LYMPHOCYTES # (AUTO) 0.6 X10'3 (1.1-4.8); LYMPHOCYTES % (AUTO) 7.6 % (21-51); MEAN CORPUSCULAR HEMOGLOBIN 30.4 PG (27.0-31.0); MEAN CORPUSCULAR HGB CONC 32.8 g/dL (33.0-36.5); MEAN CORPUSCULAR VOLUME 92.7 FL (78-98); MEAN PLATELET VOLUME 7.3 FL (7.4-10.4); MONOCYTES # (AUTO) 0.5 X10'3 (0-0.9); MONOCYTES % (AUTO) 6.6 % (2-12); NEUTROPHILS # (AUTO) 6.7 X10'3 (1.8-7.7); NEUTROPHILS % (AUTO) 85.7 % (42-75); PLATELET COUNT 259 X10'3 (140-440); RED BLOOD COUNT 3.81 X10'6 (4.20-5.60); RED CELL DISTRIBUTION WIDTH 13.9 % (11.5-14.5); WHITE BLOOD COUNT 7.8 X10'3 (4.5-11.0)
[2021-04-03 03:58] LABS: ALBUMIN 3.3 G/DL (3.4-5.0); ANION GAP 9 (8-16); BLOOD UREA NITROGEN 14 MG/DL (7-18); BUN/CREATININE RATIO 15.2 (6.6-38.0); CALCIUM 8.1 MG/DL (8.5-10.1); CHLORIDE 106 MMOL/L (99-107); CREATININE 0.92 MG/DL (0.40-0.90); GLUCOSE 153 MG/DL (70-104); POTASSIUM 4.3 MMOL/L (3.5-5.1); SODIUM 139 MMOL/L (135-145); TOTAL CARBON DIOXIDE 24.5 MMOL/L (24-32); eGFR 59 ML/MIN
--- NOTE | 2021-04-03 06:32 | NUR ---
Problems reprioritized. Patient report given, questions answered & plan of care reviewed with Rosy MCKNIGHT.
[2021-04-03] MEDS: phenylephrine inj 50 MG in normal saline 250ml IV soln 245 ML IV SCH (07:12)
[2021-04-03] MEDS ORDERED: aspirin 81mg tab.chew PO SCH (08:30)
[2021-04-03] MEDS ORDERED: HYDR-3964 PO (12:37)
--- NOTE | 2021-04-03 13:12 | NUR ---
PERI drain removed, arterial line discontinued, PIV discontinued and monitoring completed in preparation for discharge. Pt given discharge instructions and education. All questions answered. Pt discharged to home via wheelchair and personal car.
== END 2021-04-03 14:03 | disposition home or self-care (01) | DRG 27 ==
LOC: PAS IN 04-02 05:33 → UNDOADMIN 04-02 05:33 → PAS IN 04-02 10:42 → ICU 2S 04-02 13:45 → PAS IN 04-02 13:45
PROVIDERS: ADMIT Surgery; ATTEND Surgery
PROC: 03CK3ZZ Extirpation of Matter from Right Internal Carotid Artery, Percutaneous Approach (ICD-10-PCS; 2021-04-02)
PROC: 03U Upper Arteries, Supplement (ICD-10-PCS; 2021-04-02)
PROC: 03UK3KZ Supplement Right Internal Carotid Artery with Nonautologous Tissue Substitute, Percutaneous Approach (ICD-10-PCS; 2021-04-02)
PROC: 4A10X4Z Monitoring of Central Nervous Electrical Activity, External Approach (ICD-10-PCS; 2021-04-02)
PROC: 03CM3ZZ Extirpation of Matter from Right External Carotid Artery, Percutaneous Approach (ICD-10-PCS; principal; 2021-04-02 08:25)
DX: I65.21 Occlusion and stenosis of right carotid artery (principal); Z20.822 Contact with and (suspected) exposure to COVID-19; Z79.02 Long term (current) use of antithrombotics/antiplatelets; Z79.899 Other long term (current) drug therapy; Z79.82 Long term (current) use of aspirin
CPT/HCPCS: 36415; 80048; 80053; 83735; 85025; 85610; 85730; 86885; 86900; 86901; 87081; 87635; 88300; 88305; 95813; A4618; A6258; A7000; C1758; C1768; C1887; G0378; J0360; J0690; J1100; J1170; J1644; J2001; J2250; J2270; J2370; J2405; J2704; J2710; J3010; J3480; J3490; J7040; J7050; J7060; J7120; U0003; U0005

== ENCOUNTER 2021-10-18 20:56 | Emergency (ER) | payer MEDICARE ==
[~2021-10-18] VITALS: Ht 157.5 cm; Wt 63.6 kg
[~2021-10-18 20:56] MED LIST changes: +HYDR-3964 PO; -PHENYLephrine 50 MG in NS 250ml IV soln IV SCH; -famotidine 20mg tablet PO ONE; -nitroPRUSSIDE 20mg in NS 100 ML IV SCH; -ringers solution, lacted 1,000 ML IV SCH
[2021-10-18] MEDS ORDERED: cloNIDine 0.1 mg tablet PO STA (21:41)
[2021-10-18] MEDS ORDERED: oxymetazoline 15 ML nasal spray NS ONE (21:50)
[2021-10-18] MEDS ORDERED: bacitracin 15gm ointment TP ONE (21:55)
[2021-10-18 22:25] VITALS: BP 136/71
== END 2021-10-18 22:41 | disposition home or self-care (01) ==
LOC: ER 20:56
DX: R04.0 Epistaxis (principal); I10 Essential (primary) hypertension; Z79.01 Long term (current) use of anticoagulants; Z86.2 Personal history of diseases of the blood and blood-forming organs and certain disorders involving the immune mechanism; Z86.73 Personal history of transient ischemic attack (TIA), and cerebral infarction without residual deficits; Z88.2 Allergy status to sulfonamides; Z79.82 Long term (current) use of aspirin; Z79.899 Other long term (current) drug therapy
CPT/HCPCS: 99283; 99284

== ENCOUNTER 2023-09-02 08:45 | Inpatient (IN) | payer MEDICARE ==
[~2023-09-02] VITALS: Ht 157.5 cm; Wt 63.5 kg
[2023-09-02 10:36] VITALS: PULSE 77; RESP 18; O2SAT 93
[2023-09-02] MEDS: ipratropium/albuterol 3ml nebule NEB ONE (10:36)
[2023-09-02] MEDS: methylPREDNISolone sod succ 125mg/2ml vial IV ONE (10:37)
[2023-09-02 10:45] VITALS: PULSE 72; RESP 18
[2023-09-02 10:45] LABS: BASOPHILS # (AUTO) 0.1 X10'3 (0-0.2); BASOPHILS % (AUTO) 1.5 % (0-1); EOSINOPHILS # (AUTO) 0.3 X10'3 (0-0.9); EOSINOPHILS % (AUTO) 5.1 % (0-6); HEMATOCRIT 40.9 % (35.0-45.0); HEMOGLOBIN 13.6 g/dl (12.0-16.0); LYMPHOCYTES # (AUTO) 0.8 X10'3 (1.1-4.8); LYMPHOCYTES % (AUTO) 15.2 % (21-51); MEAN CORPUSCULAR HEMOGLOBIN 30.5 PG (27.0-31.0); MEAN CORPUSCULAR HGB CONC 33.2 g/dL (33.0-36.5); MEAN CORPUSCULAR VOLUME 92.1 FL (78-98); MEAN PLATELET VOLUME 7.7 FL (7.4-10.4); MONOCYTES # (AUTO) 0.6 X10'3 (0-0.9); MONOCYTES % (AUTO) 11.3 % (2-12); NEUTROPHILS # (AUTO) 3.7 X10'3 (1.8-7.7); NEUTROPHILS % (AUTO) 66.9 % (42-75); PLATELET COUNT 284 X10'3 (140-440); RED BLOOD COUNT 4.44 X10'6 (4.20-5.60); RED CELL DISTRIBUTION WIDTH 13.7 % (11.5-14.5); WHITE BLOOD COUNT 5.6 X10'3 (4.5-11.0)
[2023-09-02 11:02] LABS: ALBUMIN 3.4 G/DL (3.4-5.0); ANION GAP 6 (8-16); BLOOD UREA NITROGEN 13 MG/DL (7-18); BUN/CREATININE RATIO 14.9 (10.0-20.0); CALCIUM 8.3 MG/DL (8.5-10.1); CHLORIDE 106 MMOL/L (99-107); CREATININE 0.87 MG/DL (0.40-0.90); GLUCOSE 102 MG/DL (70-104); POTASSIUM 3.5 MMOL/L (3.5-5.1); PRO BRAIN NATRIURETIC PEPTIDE 2243 PG/ML (0-450); SODIUM 143 MMOL/L (135-145); TOTAL CARBON DIOXIDE 31.3 MMOL/L (24-32); eCRCL 39 ML/MIN; eGFR 62 ML/MIN
[2023-09-02] MEDS: cloNIDine 0.1 mg tablet PO ONE (11:16)
[2023-09-02] MEDS ORDERED: magnesium Cl slow-release 64mg tablet PO PRN (15:15)
[2023-09-02] MEDS ORDERED: acetaminophen 325mg tablet PO PRN (15:15)
[2023-09-02] MEDS ORDERED: morphine 2 MG/ML inj. syringe IV PRN (15:15)
[2023-09-02] MEDS ORDERED: magnesium 4gm in 100ml NS 100 ML IV PRN (15:15)
[2023-09-02] MEDS ORDERED: ondansetron/PF 4mg/2ml inj IV PRN (15:15)
[2023-09-02] MEDS: PERFLUTREN PROTEIN-A MICROSPHR (Optison) 0.22 MG/ML 3ML VIAL IV ONE (15:15)
[2023-09-02] MEDS ORDERED: potassium Cl 40MEQ/1/2NS 520ml 520 ML IV PRN (15:15)
[2023-09-02] MEDS ORDERED: HYDROcodone/acetaminophen 5mg/325mg tablet PO PRN (15:15)
[2023-09-02] MEDS ORDERED: potassium Cl 20 mEq SR tablet PO PRN ×2 (15:15)
[2023-09-02] MEDS ORDERED: magnesium 2GM in 50ml NS 50 ML IV PRN (15:15)
[2023-09-02 15:32] LABS: MAGNESIUM 1.9 MG/DL (1.5-2.4)
[2023-09-02] MEDS: CefTRIAXone/D5W-Rocephin 1gm 50 ML IV ONE (16:40)
[2023-09-02] MEDS: azithromycin/NS 500mg/250ml 250 ML IV ONE (17:25)
[2023-09-02] MEDS: K and/or MAG REPLACEMENT MC SCH (19:38)
[2023-09-02 21:39] VITALS: BP 168/70; PULSE 74; RESP 16; TEMP 97; O2SAT 92
[2023-09-02] MEDS ORDERED: LISI40TA13 PO (22:19)
[2023-09-02] MEDS ORDERED: ASPI-1265 PO (22:19)
[2023-09-02] MEDS ORDERED: CHOL100053 PO (22:19)
[2023-09-02] MEDS ORDERED: MULT-1249 PO (22:19)
[2023-09-02] MEDS ORDERED: FERR236T3 PO (22:19)
[2023-09-02] MEDS ORDERED: ATOR20TA PO (22:19)
[2023-09-02] MEDS ORDERED: CEFU500T66 PO (22:29)
[2023-09-02] MEDS ORDERED: BENZ-111 PO (22:29)
[2023-09-02 22:30] VITALS: RESP 16; O2SAT 92
[2023-09-03] VITALS (8 sets, daily range): BP systolic 126–157; BP diastolic 61–110; PULSE 70–122; RESP 16–25; TEMP 97–98.1; O2SAT 91–96
[2023-09-03] MEDS: temazepam 15mg capsule PO PRN (03:12)
[2023-09-03 06:59] LABS: BASOPHILS % (AUTO) 0.2 % (0-1); EOSINOPHILS % (AUTO) 0 % (0-6); HEMATOCRIT 38.5 % (35.0-45.0); HEMOGLOBIN 12.7 g/dl (12.0-16.0); LYMPHOCYTES # (AUTO) 0.7 X10'3 (1.1-4.8); LYMPHOCYTES % (AUTO) 12.3 % (21-51); MEAN CORPUSCULAR HEMOGLOBIN 30.1 PG (27.0-31.0); MEAN PLATELET VOLUME 7.7 FL (7.4-10.4); MONOCYTES # (AUTO) 0.5 X10'3 (0-0.9); MONOCYTES % (AUTO) 8.8 % (2-12); NEUTROPHILS # (AUTO) 4.7 X10'3 (1.8-7.7); NEUTROPHILS % (AUTO) 78.7 % (42-75); PLATELET COUNT 282 X10'3 (140-440); RED BLOOD COUNT 4.23 X10'6 (4.20-5.60); RED CELL DISTRIBUTION WIDTH 13.2 % (11.5-14.5)
[2023-09-03 07:04] LABS: ALBUMIN 3.2 G/DL (3.4-5.0); ANION GAP 8 (8-16); BLOOD UREA NITROGEN 14 MG/DL (7-18); BUN/CREATININE RATIO 17.1 (10.0-20.0); CALCIUM 8.3 MG/DL (8.5-10.1); CHLORIDE 106 MMOL/L (99-107); CREATININE 0.82 MG/DL (0.40-0.90); GLUCOSE 125 MG/DL (70-104); MAGNESIUM 2.1 MG/DL (1.5-2.4); POTASSIUM 3.6 MMOL/L (3.5-5.1); SODIUM 143 MMOL/L (135-145); TOTAL CARBON DIOXIDE 29.3 MMOL/L (24-32); eCRCL 42 ML/MIN; eGFR 67 ML/MIN
[2023-09-03] MEDS: methylPREDNISolone sod succ 125mg/2ml vial IV ONE (15:12)
[2023-09-03] MEDS: CefTRIAXone/D5W-Rocephin 1gm 50 ML IV SCH (15:13)
[2023-09-03] MEDS: azithromycin/NS 500mg/250ml 250 ML IV SCH (15:57)
[2023-09-03] MEDS ORDERED: benzonatate 100mg capsule PO PRN (17:55)
[2023-09-03] MEDS ORDERED: aspirin 81mg tab.chew PO PRN (17:55)
[2023-09-03] MEDS: amLODIPine 5mg tablet PO SCH (19:27)
[2023-09-03] MEDS: hydrALAZINE 20mg/ml inj. IV SCH (19:27)
[2023-09-03] MEDS: clopidogrel 75mg tablet PO SCH (19:27)
[2023-09-03] MEDS: atorvastatin 20mg tablet PO SCH (19:27)
[2023-09-04 02:00] VITALS: BP 151/73; PULSE 72; RESP 15; TEMP 97.9; O2SAT 94
[2023-09-04 06:00] VITALS: BP 154/76; PULSE 75; RESP 16; TEMP 97.6; O2SAT 93
[2023-09-04 07:43] LABS: BASOPHILS % (AUTO) 0.2 % (0-1); EOSINOPHILS % (AUTO) 0 % (0-6); HEMATOCRIT 44.7 % (35.0-45.0); HEMOGLOBIN 14.7 g/dl (12.0-16.0); LYMPHOCYTES # (AUTO) 1.1 X10'3 (1.1-4.8); LYMPHOCYTES % (AUTO) 15.1 % (21-51); MEAN CORPUSCULAR HEMOGLOBIN 30.1 PG (27.0-31.0); MEAN CORPUSCULAR HGB CONC 32.8 g/dL (33.0-36.5); MEAN CORPUSCULAR VOLUME 91.7 FL (78-98); MEAN PLATELET VOLUME 7.8 FL (7.4-10.4); MONOCYTES # (AUTO) 0.4 X10'3 (0-0.9); NEUTROPHILS # (AUTO) 5.7 X10'3 (1.8-7.7); NEUTROPHILS % (AUTO) 78.7 % (42-75); PLATELET COUNT 335 X10'3 (140-440); RED BLOOD COUNT 4.87 X10'6 (4.20-5.60); RED CELL DISTRIBUTION WIDTH 13.4 % (11.5-14.5); WHITE BLOOD COUNT 7.3 X10'3 (4.5-11.0)
[2023-09-04 07:50] LABS: ALBUMIN 3.7 G/DL (3.4-5.0); ANION GAP 9 (8-16); BLOOD UREA NITROGEN 21 MG/DL (7-18); BUN/CREATININE RATIO 21.9 (10.0-20.0); CHLORIDE 105 MMOL/L (99-107); CREATININE 0.96 MG/DL (0.40-0.90); GLUCOSE 121 MG/DL (70-104); MAGNESIUM 2.2 MG/DL (1.5-2.4); POTASSIUM 3.9 MMOL/L (3.5-5.1); SODIUM 139 MMOL/L (135-145); eCRCL 36 ML/MIN; eGFR 56 ML/MIN
[2023-09-04 08:00] VITALS: RESP 16; O2SAT 93
[2023-09-04] MEDS ORDERED: FLUoxetine 20mg capsule PO SCH (08:00)
[2023-09-04] MEDS: lisinopril 20mg tablet PO SCH (08:28)
[2023-09-04 11:00] VITALS: BP 172/76; PULSE 85; RESP 26; TEMP 97.3; O2SAT 93
[2023-09-04] MEDS: FLUoxetine 20mg capsule PO SCH (11:14)
[2023-09-04 12:03] VITALS: BP 143/60; PULSE 90
[2023-09-04] MEDS ORDERED: LEVO-65 PO (12:47)
[2023-09-05 14:35] LABS: HBSAG SCREEN Negative (Negative); HEP B CORE AB, IGM Negative (Negative); HEP B CORE AB, TOT Negative (Negative)
== END 2023-09-04 14:40 | disposition home or self-care (01) | DRG 193 ==
LOC: ER 08:46 → ED HOLD 15:22 → PCU 3S 21:35
PROVIDERS: ADMIT Internal Medicine; ATTEND Internal Medicine
DX: J15.9 Unspecified bacterial pneumonia (principal); I50.33 Acute on chronic diastolic (congestive) heart failure; I16.1 Hypertensive emergency; J44.0 Chronic obstructive pulmonary disease with (acute) lower respiratory infection; J44.1 Chronic obstructive pulmonary disease with (acute) exacerbation; I11.0 Hypertensive heart disease with heart failure; I10 Essential (primary) hypertension; K44.9 Diaphragmatic hernia without obstruction or gangrene; E78.5 Hyperlipidemia, unspecified; R09.02 Hypoxemia; F32.A Depression, unspecified; Z20.822 Contact with and (suspected) exposure to COVID-19; R79.89 Other specified abnormal findings of blood chemistry; I48.91 Unspecified atrial fibrillation; Z79.82 Long term (current) use of aspirin; Z79.01 Long term (current) use of anticoagulants; Z86.73 Personal history of transient ischemic attack (TIA), and cerebral infarction without residual deficits; Z88.2 Allergy status to sulfonamides; Z79.02 Long term (current) use of antithrombotics/antiplatelets
CPT/HCPCS: 36415; 71046; 71250; 80048; 83605; 83735; 83880; 84484; 85025; 86704; 86705; 87040; 87081; 87340; 87634; 87811; 93005; 93306; 94640; 94760; 99285; A4615; G0378; J0360; J0456; J0696; J2930; J7040